=== PATIENT | male | born 1945 | race Caucasian/White ===

== ENCOUNTER 2020-03-26 11:16 | Emergency (ER) | payer MEDICARE ==
[2020-03-26 11:17] VITALS: TEMP 98.5
[2020-03-26 11:31] LABS: BASO % 0.4 % (0.0-2.0); EOS # 0.4 (0.0-0.7); EOS % 6.9 % (0-4.0); GRAN # 3.4 (1.4-6.5); GRAN % 64.3 % (42.2-75.2); LYMPH # 1.1 (1.2-3.4); MEAN CELL VOLUME 98 fl (80.0-100.0); MEAN CORPUSCULAR HEMOGLOBIN 30 pg (27.0-31.0); MEAN CORPUSCULAR HGB CONC 30 g/dl (33.0-37.0); MONO # 0.4 (0.1-0.6); PLATELET COUNT 183 K/mm3 (130-400); RED BLOOD COUNT 3.36 M/mm3 (4.20-5.60); REDCELL DISTRIBUTION WIDTH-CV 14.4 % (11.5-14.5)
[2020-03-26 11:32] LABS: HEMATOCRIT 32.9 % (42.0-52.0)
[2020-03-26 11:37] LABS: ARTERIAL BLD GAS TCO2 CT 29.7; ARTERIAL BLOOD GAS BASE EXCESS 3.3 (-2-2); ARTERIAL BLOOD GAS HCO3 28.3 meq/L (22-26); ARTERIAL BLOOD GAS PO2 88.4 mmHg (80-100); ARTERIAL BLOOD GAS pH 7.42 (7.35-7.45)
[2020-03-26 11:43] LABS: ALBUMIN 3.8 gm/dL (3.5-5.0); BILIRUBIN,TOTAL 0.6 mg/dL (0.0-1.0); C-REACTIVE PROTEIN 1.9 mg/dL (0.0-0.9); CALCIUM 8.6 mg/dL (8.4-10.2); CREATININE, serum 2.08 (0.66-1.25); POTASSIUM 4.3 mmol/L (3.4-5.0); TOTAL PROTEIN 7.2 gm/dL (6.4-8.2)
[2020-03-26 11:53] LABS: TROPONIN-I 0.021 ng/mL (0.000-0.035)
[2020-03-26] MEDS ORDERED: ASPIRIN 81M81 MG/TA2 PO (12:04)
[2020-03-26] MEDS ORDERED: ZYLOPRIM 100MG100 MG PO (12:04)
[2020-03-26] MEDS ORDERED: PHOS LO (12:05)
[2020-03-26] MEDS ORDERED: CULTURELLE1 EAC1 PO (12:06)
[2020-03-26] MEDS ORDERED: PERIACTIN 4MG TA4 MG PO (12:07)
[2020-03-26] MEDS ORDERED: CULTURELLE CAP1 EAC1 PO (12:07)
[2020-03-26] MEDS ORDERED: ZYPREXA20 MG PO (12:08)
[2020-03-26] MEDS ORDERED: ACTOS 45MG45 MG/TAB PO (12:09)
[2020-03-26] MEDS ORDERED: BACTROBAN15 GM TOP ×3 (12:10→12:13)
[2020-03-26] MEDS ORDERED: RENVELA800 MG PO (12:10)
[2020-03-26] MEDS ORDERED: TYLENOL 325MG325 MG PO (12:14)
[2020-03-26] MEDS ORDERED: CALCITRIOL PO (12:15)
[2020-03-26] MEDS ORDERED: TIROSINT25 MC1 PO (12:17)
[2020-03-26 14:45] VITALS: BP 142/101; PULSE 115
== END 2020-03-26 15:00 | disposition short-term general hospital (02) ==
LOC: COL.ER 11:16
PROVIDERS: Emergency Medicine
DX: R06.02 Shortness of breath (principal); N18.6 End stage renal disease; Z99.2 Dependence on renal dialysis; Z79.82 Long term (current) use of aspirin
CPT/HCPCS: J2060